=== PATIENT | female | born 1955 | race Caucasian/White ===

== ENCOUNTER 2016-08-03 06:19 | Emergency (ER) | payer OTHER ==
[~2016-08-03] VITALS: Ht 149.9 cm; Wt 56.5 kg
[~2016-08-03 06:19] MED LIST: PROT40TA PO
[2016-08-03 06:22] VITALS: BP 115/65; PULSE 72; RESP 16; TEMP 97.5; O2SAT 97
[2016-08-03] MEDS ORDERED: UBIQ100C (06:40)
--- NOTE | 2016-08-03 06:40 | PD ---
HPI Chief Complaint: Pain: Acute or Chronic Time Seen by Provider: 06:32 Travel History International Travel<30 days: No Contact w/Intl Traveler<30days: No Traveled to known affect area: No History of Present Illness HPI 60-year-old female here with complaint of low back pain. Patient states that she has a history of intermittent low back pain. For the last 2 weeks or so she has been having left-sided low back pain that radiates into the right buttock, hip and down the left leg. She describes this as a burning, stinging type pain. It is worse with laying flat and lifting her leg. She has not had any loss of function of bowel or bladder dysfunction. Patient has been trying heat at home and occasional Tylenol without any improvement. PFSH Past Medical History Heart Rhythm Problems: No Cardiac Catheterization: No Cardiovascular Problems: No High Cholesterol: No Congestive Heart Failure: No Diabetes: No Diminished Hearing: No Gastrointestinal Disorders: Yes (HX OF IBS) Genitourinary: Yes (CONGENITAL R KIDNEY ABSENT) Musculoskeletal: Yes (CHRONIC NECK PAIN) Tetanus Vaccination: Unknown Influenza Vaccination: No ?: Not Menopausal: Yes Past Surgical History Surgical History: No Previous Surgery Coronary Artery Bypass Graft: No Family History Family Myocardial Infarction: Yes (UNCLES X 2,GRANDFATHER AT 53 OF [place]) Social History Alcohol Use: Yes (OCCASIONAL) Tobacco Use: No Substance Use: Yes (MARIJUIANA) Allergies-Medications (Allergen,Severity, Reaction): Coded Allergies: Keflex (Verified Allergy, Severe, Anaphylaxis, 08/03/16) Phenobarbital (Verified Allergy, Severe, Anaphylaxis, 08/03/16) Prednisone (Verified Allergy, Severe, 08/03/16) Reported Meds & Prescriptions Reported Meds & Active Scripts Active Reported Ubiquinol 100 Mg Cap Review of Systems Except as stated in HPI: all other systems reviewed are Neg Physical Exam Narrative GENERAL: Well-appearing female in no acute distress SKIN: Focused skin assessment warm/dry. HEAD: Normocephalic. EYES: No scleral icterus. No injection or drainage. ENT: Mucous membranes pink and moist. NECK: Supple without midline tenderness palpation CARDIOVASCULAR: Regular rate and rhythm. RESPIRATORY: No accessory muscle use. GASTROINTESTINAL: Abdomen soft, non-tender, nondistended. No CVA tenderness. MUSCULOSKELETAL: No midline tenderness to palpation of thoracic or lumbar spine. Left-sided lumbar tenderness to palpation without palpable spasm. Patient has reproducible left sciatic tenderness to palpation. 5 out of 5 strength in the bilateral upper and lower extremities. Positive left-sided straight leg raise. Good reflexes, able to ambulate independently without any antalgic gait NEUROLOGICAL: Awake and alert. Normal speech. PSYCHIATRIC: Appropriate mood and affect; insight and judgment normal. Data Data Last Documented VS Vital Signs Date Time Temp Pulse Resp B/P Pulse Ox O2 Delivery O2 Flow Rate FiO2 08/03/16 06:22 97.5 72 16 115/65 97 Room Air Orders Ketorolac Inj (Toradol Inj) (08/03/16 06:45) [facility] Medical Decision Making Medical Screen Exam Complete: Yes Emergency Medical Condition: Yes Medical Record Reviewed: Yes Differential Diagnosis 60-year-old female here with approximately 2 weeks of left-sided low back pain radiating the left leg. Differential includes lumbar strain, radiculopathy, sciatica. No red flags or warning signs to warrant any imaging. Narrative Course Patient was given dose of Toradol. Will be discharged home with steroids, muscle relaxers. Patient encouraged to follow-up with her chiropractor with which she arty sees for this problem. Diagnosis Primary Impression: Lumbar radiculopathy, acute Referrals: Primary Care Physician as needed Additional Instructions: Steroids as prescribed. Muscle relaxers as needed. Ice the affected area 20 minutes at a time 3-4 times daily. Med/Other Pt SpecificInfo: Prescription(s) given Scripts Cyclobenzaprine (Flexeril)10 Mg Tab10 Mg PO TID PRN (SPASM) #21 TAB Ref 0 Prov:Becka Maki MD 08/03/16 Methylprednisolone Dosepak (Medrol Dosepak)4 Mg Dspk4 Mg PO DIRECTED #1 DSPK Ref 0 Per Pharmacist direction Prov:Becka Maki MD 08/03/16 Disposition: 01 DISCHARGE HOME Condition: Stable Becka Maki MD August 03, 2016 06:40
[2016-08-03] MEDS ORDERED: MEDR4PAK PO (06:41)
[2016-08-03] MEDS ORDERED: CYCL1TAB29 PO (06:41)
[2016-08-03] MEDS ORDERED: KETOROLAC TROMETHAMINE 60 MG/2 ML (IM) VIAL IM ONE (06:45)
== END 2016-08-03 06:49 | disposition home or self-care (01) ==
LOC: NEPE 06:19
DX: M54.16 Radiculopathy, lumbar region (principal); K58.9 Irritable bowel syndrome, unspecified; F10.10 Alcohol abuse, uncomplicated
CPT/HCPCS: 96372; 99283; J1885

== ENCOUNTER 2017-06-25 21:24 | Emergency (ER) | payer OTHER ==
[~2017-06-25] VITALS: Ht 149.9 cm; Wt 60.0 kg
[~2017-06-25 21:24] MED LIST changes: +CYCL10TA PO; +MEDR4PAK PO; -PROT40TA PO; +UBIQ1CAP2
[2017-06-25 21:36] VITALS: BP 125/59; PULSE 81; RESP 16; TEMP 99.3
--- NOTE | 2017-06-26 01:11 | PD ---
HPI Chief Complaint: Laceration/Skin Injury Time Seen by Provider: 00:29 Travel History International Travel<30 days: No Contact w/Intl Traveler<30days: No Traveled to known affect area: No History of Present Illness HPI Patient is a 61-year-old female presenting to the emergency department for evaluation of a laceration to her right thumb. She states she was washing dishes when a glass bowl broke cutting her finger. She reports her pain is a 3 out of 10, worse with movement and states it sore. Symptom onset was sudden, symptoms are mild in nature. Her tetanus vaccine is up-to-date, she states it was administered in 2016. She has no other complaints at this time. PFSH Past Medical History Heart Rhythm Problems: No Cardiac Catheterization: No Cardiovascular Problems: No High Cholesterol: No Congestive Heart Failure: No Diabetes: No Diminished Hearing: No Gastrointestinal Disorders: Yes (HX OF IBS) Genitourinary: Yes (CONGENITAL R KIDNEY ABSENT) Musculoskeletal: Yes (CHRONIC NECK PAIN) Tetanus Vaccination: Unknown Influenza Vaccination: No Menopausal: Yes Past Surgical History Coronary Artery Bypass Graft: No Family History Family Myocardial Infarction: Yes (UNCLES X 2,GRANDFATHER AT [address]) Social History Alcohol Use: Yes (OCCASIONAL) Tobacco Use: No Substance Use: Yes (MARIJUIANA) Allergies-Medications (Allergen,Severity, Reaction): Coded Allergies: cephalexin (Unverified Allergy, Severe, Anaphylaxis, 06/25/17) phenobarbital (Unverified Allergy, Severe, Anaphylaxis, 06/25/17) prednisone (Unverified Allergy, Severe, 06/25/17) Reported Meds & Prescriptions Reported Meds & Active Scripts Active Flexeril (Cyclobenzaprine HCl) 10 Mg Tab 10 Mg PO TID PRN Medrol Dosepak (Methylprednisolone) 4 Mg Dspk 4 Mg PO DIRECTED Per Pharmacist direction Reported Ubiquinol 100 Mg Cap Review of Systems Except as stated in HPI: all other systems reviewed are Neg Skin: Positive Other (Laceration) Physical Exam Narrative GENERAL: Well-developed, well-nourished, alert female. Presenting in no acute distress. SKIN: Warm and dry. 1 cm superficial laceration to the lateral aspect of the right first finger. HEAD: Normocephalic. EYES: No scleral icterus. No injection or drainage. NECK: Supple, trachea midline. No JVD or lymphadenopathy. CARDIOVASCULAR: Regular rate and rhythm without murmurs, gallops, or rubs. RESPIRATORY: Breath sounds equal bilaterally. No accessory muscle use. GASTROINTESTINAL: Abdomen soft, non-tender, nondistended. MUSCULOSKELETAL: No cyanosis, or edema. Full range of motion in right hand and fingers. Patient is neurovascularly intact. BACK: Nontender without obvious deformity. No CVA tenderness. Data Data Last Documented VS Vital Signs Date Time Temp Pulse Resp B/P (MAP) Pulse Ox O2 Delivery O2 Flow Rate FiO2 06/25/17 21:36 99.3 81 16 125/59 (81) Room Air MDM Medical Decision Making Medical Screen Exam Complete: Yes Emergency Medical Condition: Yes Interpretation(s) Vital Signs Date Time Temp Pulse Resp B/P (MAP) Pulse Ox O2 Delivery O2 Flow Rate FiO2 06/25/17 21:36 99.3 81 16 125/59 (81) Room Air Differential Diagnosis Laceration versus abrasion versus tendon injury versus other Narrative Course Patient is well-appearing 61-year-old female presenting for laceration to her right first finger. Tetanus vaccine is up-to-date, please see procedure report for laceration repair. Patient was educated on signs and symptoms of infection and care of stitches. She was encouraged to follow-up with her primary doctor or return to emergency department to have stitches removed in 7-10 days. She is advised to keep them clean and dry and avoid submersion in water. She verbalized understanding of instructions. Patient stable for discharge. Procedures Procedure Narrative LACERATION LOCATION: Right first finger LENGTH: 1 cm NUMBER OF STITCHES/BALWINDER: 3 stitches REPAIR: The area of the laceration was prepped with Betadine and sterilely draped. The laceration was infiltrated with 1% lidocaine-]. The wound was copiously irrigated and explored without evidence of foreign body, tendon injury or neurovascular injury. The wound was closed using 5-0 Prolene. This was a 1 layer repair. A sterile dressing was applied. The patient was advised to keep the dressing clean and dry. Patient tolerated the procedure well. Diagnosis Primary Impression: Laceration of finger Qualified Codes: S61.011A - Laceration without foreign body of right thumb without damage to nail, initial encounter Referrals: Primary Care Physician 1 week Patient Instructions: Care For Your Stitches (ED), Finger Laceration (ED), General Instructions Additional Instructions: Keep stitches clean and dry Follow-up with your primary doctor or return to emergency department in 1 week to have stitches removed Return to emergency department immediately for any new or worsening symptoms Med/Other Pt SpecificInfo: No Change to Meds Disposition: 01 DISCHARGE HOME Condition: Stable Avis Sheldon Jun 26, 2017 01:11
== END 2017-06-26 02:07 | disposition home or self-care (01) ==
LOC: NEPD 21:24
DX: S61.011A Laceration without foreign body of right thumb without damage to nail, initial encounter (principal); W25.XXXA Contact with sharp glass, initial encounter; Y93.G1 Activity, food preparation and clean up; K58.9 Irritable bowel syndrome, unspecified; G89.29 Other chronic pain; M54.2 Cervicalgia; Q60.0 Renal agenesis, unilateral; F12.90 Cannabis use, unspecified, uncomplicated
CPT/HCPCS: 12001